=== PATIENT | male | born 1975 | race Caucasian/White ===

== ENCOUNTER 2016-05-16 22:20 | Emergency (ER) | payer OTHER ==
[2016-05-16] MEDS ORDERED: Ibuprofen 600 MG TAB ONE (22:51)
[2016-05-16] MEDS ORDERED: NEB-ALBUTEROL 2.5 MG/3 ML INH ONE (23:02)
== END 2016-05-16 23:40 | disposition home or self-care (01) ==
LOC: ER 22:20
DX: R50.9 Fever, unspecified (principal); F17.210 Nicotine dependence, cigarettes, uncomplicated
CPT/HCPCS: 36415; 71010; 80053; 80307; 80320; 85025; 94640